=== PATIENT | female | born 1965 | race African-American/Black ===

== ENCOUNTER 2016-08-21 14:54 | Emergency (ER) | payer OTHER ==
[~2016-08-21] VITALS: Ht 175.3 cm; Wt 81.6 kg
[2016-08-21 15:00] VITALS: BP 138/86
[2016-08-21] MEDS ORDERED: Ranitidine 50mg/2ml Inj IVP ONE (15:00)
[2016-08-21] MEDS ORDERED: Morphine Sulfate 4mg/ml Inj IVP ONE ×2 (15:00→18:00)
[2016-08-21] MEDS ORDERED: HYDROmorphone 1mg/ml Carpuject IVP ONE (15:00)
--- NOTE | 2016-08-21 15:45 | Emergency Room Report ---
History of Present Illness General Chief Complaint: Abdominal Pain Source: Patient Present Illness HPI Patient is a 51-year-old female who presented after increased epigastric pain. Patient reports having sharp pain which did not radiate. Patient stated that she had vomited multiple times. Patient says she had prior history of stage IV breast cancer. The patient had noted increased swelling to her left upper extremity which had been intermittently present. The patient was noted to have malignancy to her left breast. Patient was scheduled to do chemotherapy in the coming week. The patient reportedly had been seen at [facility] yesterday. The patient reported having some coffee-ground emesis. Allergies: Coded Allergies: No Known Allergies (Unverified , 08/21/16) Patient History Past Medical History: other - breast cancer Last Menstrual Period: na Reviewed Nursing Documentation: PMH: Agreed, PSxH: Agreed Nursing Documentation-PMH Past Medical History: No History, Except For Hx Cancer: Yes - left breast Review of Systems All Other Systems: negative except mentioned in HPI Physical Exam Vital Signs Date Time Temp Pulse Resp B/P Pulse Ox O2 Delivery O2 Flow Rate FiO2 08/21/16 14:46 96.8 120 18 138/86 98 Room Air Sp02 EP Interpretation: reviewed, normal General Appearance: no apparent distress, alert, GCS 15 Head: atraumatic ENT: normal ENT inspection, hearing grossly normal, normal voice Neck: normal inspection, full range of motion, supple, no bony tend Respiratory: normal inspection, lungs clear, normal breath sounds, no respiratory distress, no retraction, no wheezing Cardiovascular #1: regular rate, rhythm, no edema Gastrointestinal: normal inspection, normal bowel sounds, non tender, soft, no guarding, no hernia Genitourinary: no CVA tenderness Musculoskeletal: normal inspection, back normal, normal range of motion, swelling - upper extremity edema left arm Neurologic: normal inspection, alert, oriented x3, responsive, hairspring assembler III-XII nml as tested, speech normal Psychiatric: normal inspection, judgement/insight normal, mood/affect normal Skin: normal inspection, normal color, no rash Medical Decision Making Diagnostic Impression: Primary Impression: Breast cancer Additional Impressions: Gastritis UTI (urinary tract infection) ER Course Patient presented for abdominal pain. Differential diagnoses included ischemic bowel, appendicitis, perforated viscus, abdominal aortic aneurysm, inferior myocardial infarction, viral gastroenteritis Because of complexity of patient's case laboratory testing and imaging studies were ordered. The patient was given IV ranitidine as well as IV pain medications. The patient was reportedly seen at [place] yesterday and reportedly had CT imaging of her abdomen performed. CT report from [place] was reviewed. Laboratory testing was unremarkable. Patient was scheduled to begin chemotherapy later in the week. Patient was given IV fluids. She was noted to have left upper extremity lymphedema. This was likely due to spread of tumor into left lung and left breast. Patient was given prescription for pain medications and acid blockers. She was advised to follow up with her oncology team in the next 1-2 days for recheck. Labs Test 08/21/16 15:42 08/21/16 15:48 White Blood Count 10.9 K/UL (4.8-10.8) Red Blood Count 4.33 M/UL (4.20-5.40) Hemoglobin 11.8 G/DL (12.0-16.0) Hematocrit 37.2 % (37.0-47.0) Mean Corpuscular Volume 86 FL (80-99) Mean Corpuscular Hemoglobin 27.2 PG (27.0-31.0) Mean Corpuscular Hemoglobin Concent 31.6 G/DL (32.0-36.0) Red Cell Distribution Width 17.1 % (11.6-14.8) Platelet Count 227 K/UL (150-450) Mean Platelet Volume 6.3 FL (6.5-10.1) Neutrophils (%) (Auto) % (45.0-75.0) Lymphocytes (%) (Auto) % (20.0-45.0) Monocytes (%) (Auto) % (1.0-10.0) Eosinophils (%) (Auto) % (0.0-3.0) Basophils (%) (Auto) % (0.0-2.0) Differential Total Cells Counted 100 Neutrophils % (Manual) 82 % (45-75) Lymphocytes % (Manual) 9 % (20-45) Monocytes % (Manual) 5 % (1-10) Eosinophils % (Manual) 0 % (0-3) Basophils % (Manual) 0 % (0-2) Band Neutrophils 4 % (0-8) Platelet Estimate Adequate Platelet Morphology Normal Hypochromasia 1+ Anisocytosis 1+ Prothrombin Time 9.6 SEC (9.30-11.50) Prothromb Time International Ratio 0.9 (0.9-1.1) Activated Partial Thromboplast Time 25 SEC (23-33) Sodium Level 139 mEQ/L (135-145) Potassium Level 3.4 mEQ/L (3.4-4.9) Chloride Level 98 mEQ/L (98-107) Carbon Dioxide Level 25 mEQ/L (20-30) Anion Gap 16 (5-15) Blood Urea Nitrogen 15 mg/dL (7-23) Creatinine 0.8 mg/dL (0.5-0.9) Estimat Glomerular Filtration Rate > 60 mL/min (>60) Glucose Level 90 mg/dL (74-106) Calcium Level 9.1 mg/dL (8.6-10.2) Total Bilirubin 0.3 mg/dL (0.0-1.2) Aspartate Amino Transf (AST/SGOT) 15 U/L (5-40) Alanine Aminotransferase (ALT/SGPT) 12 U/L (3-33) Alkaline Phosphatase 75 U/L (35-104) Troponin I < 0.30 ng/mL (<=0.30) Total Protein 8.1 g/dL (6.6-8.7) Albumin 3.8 g/dL (3.5-5.2) Globulin 4.3 g/dL Albumin/Globulin Ratio 0.8 (1.0-2.7) Lipase 20 U/L (< 60) Urine Color Pale yellow Urine Appearance Clear Urine pH 5 (4.5-8.0) Urine Specific [place] 1.020 (1.005-1.035) Urine Protein 2+ (NEGATIVE) Urine Glucose (UA) Negative (NEGATIVE) Urine Ketones Negative (NEGATIVE) Urine Occult Blood 5+ (NEGATIVE) Urine Nitrite Negative (NEGATIVE) Urine Bilirubin Negative (NEGATIVE) Urine Urobilinogen Normal MG/DL (0.0-1.0) Urine Leukocyte Esterase 2+ (NEGATIVE) Urine RBC 10-15 /HPF (0 - 2) Urine WBC 5-10 /HPF (0 - 2) Urine Squamous Epithelial Cells Few /LPF (NONE/OCC) Urine Bacteria Moderate /HPF (NONE) Urine Opiates Screen Positive (NEGATIVE) Urine Barbiturates Screen Negative (NEGATIVE) Phencyclidine (PCP) Screen Negative (NEGATIVE) Urine Amphetamines Screen Negative (NEGATIVE) Urine Benzodiazepines Screen Negative (NEGATIVE) Urine Cocaine Screen Negative (NEGATIVE) Urine Marijuana (THC) Screen Negative (NEGATIVE) Last Vital Signs Date Time Temp Pulse Resp B/P Pulse Ox O2 Delivery O2 Flow Rate FiO2 08/21/16 14:46 96.8 120 18 138/86 98 Room Air Status: improved Disposition: HOME, SELF-CARE Condition: Stable Scripts Ondansetron* (ZOFRAN*) 4 Mg Tablet 4 MG ORAL Q6H Y for Nausea & Vomiting, #20 TAB Prov: Angel Guallpa 08/21/16 Trimethoprim/Sulfamethoxazole 160/800* (BACTRIM DS TABLET*) 1 Each Tablet 1 TAB ORAL Q12H, #14 TAB 0 Refills Prov: Angel Guallpa 08/21/16 Oxycodone/Acetaminophen 5-325* (PERCOCET 5-325 MG TABLET*) 1 Each Tablet 1 TAB ORAL Q4H Y for For Pain, #15 TAB 0 Refills Prov: Angel Guallpa 08/21/16 Omeprazole (OMEPRAZOLE) 20 Mg Capsule.dr 20 MG ORAL DAILY, #30 CAP Prov: Angel Guallpa 08/21/16 Angel Guallpa Aug 21, 2016 15:45
[2016-08-21 16:27] LABS: MEAN CORPUSCULAR HEMOGLOBIN 27.2 PG (27.0-31.0); MEAN CORPUSCULAR HGB CONC 31.6 G/DL (32.0-36.0); MEAN CORPUSCULAR VOLUME 86 FL (80-99); MEAN PLATELET VOLUME 6.3 FL (6.5-10.1); PLATELET COUNT 227 K/UL (150-450); RED BLOOD COUNT 4.33 M/UL (4.20-5.40); RED CELL DISTRIBUTION WIDTH 17.1 % (11.6-14.8); WHITE BLOOD COUNT 10.9 K/UL (4.8-10.8)
[2016-08-21 16:30] LABS: ALANINE AMINOTRANSFERASE 12 U/L (3-33); ALBUMIN/GLOBULIN RATIO 0.8 (1.0-2.7); ANION GAP 16 (5-15); ASPARTATE AMINO TRANSFERASE 15 U/L (5-40); CALCIUM 9.1 mg/dL (8.6-10.2); CARBON DIOXIDE 25 mEQ/L (20-30); CHLORIDE 98 mEQ/L (98-107); CREATININE 0.8 mg/dL (0.5-0.9); GLOMERULAR FILTRATION RATE > 60 mL/min (>60); HEMOLYSIS 5; LIPASE 20 U/L (< 60); POTASSIUM 3.4 mEQ/L (3.4-4.9); SODIUM 139 mEQ/L (135-145); TOTAL PROTEIN 8.1 g/dL (6.6-8.7); TROPONIN I < 0.30 ng/mL (<=0.30)
[2016-08-21 16:31] LABS: APPEARANCE,URINE CLEAR; KETONES,URINE NEGATIVE (NEGATIVE); LEUKOCYTE ESTERASE ,URINE 2+ (NEGATIVE); NITRITE,URINE NEGATIVE (NEGATIVE); PH,URINE 5 (4.5-8.0); PROTEIN,URINE 2+ (NEGATIVE); UROBILINOGEN,URINE NORMAL MG/DL (0.0-1.0)
[2016-08-21 16:41] LABS: INR 0.9 (0.9-1.1); PROTHROMBIN TIME 9.6 SEC (9.30-11.50)
[2016-08-21 16:42] LABS: BACTERIA,URINE MODERATE /HPF; SQUAMOUS EPITHELIAL CELL,UR FEW /LPF (NONE/OCC)
[2016-08-21] MEDS ORDERED: cefTRIAXone 1 GM in NS 55 ML IVPB ONE ×2 (16:45→17:45)
[2016-08-21 17:00] VITALS: BP 128/75
[2016-08-21 17:22] LABS: ANISOCYTOSIS 1+; BAND NEUTROPHILS % (MANUAL) 4 % (0-8); BASOPHILS % (MANUAL) 0 % (0-2); EOSINOPHILS % (MANUAL) 0 % (0-3); HYPOCHROMASIA 1+; LYMPHOCYTES % (MANUAL) 9 % (20-45); NEUTROPHILS % (MANUAL) 82 % (45-75); PLATELET ESTIMATE ADEQUATE; PLATELET MORPHOLOGY NORMAL; TOTAL CELLS COUNTED 100
[2016-08-21] MEDS ORDERED: PERCOCET 5-3251 EACH ORAL (18:12)
[2016-08-21] MEDS ORDERED: BACTRIM DS TAB1 EAC1 ORAL (18:12)
[2016-08-21] MEDS ORDERED: OMEPRAZOLE20 M2 ORAL (18:12)
[2016-08-21] MEDS ORDERED: ZOFRAN4 M3 ORAL (18:29)
[2016-08-21 19:38] VITALS: BP 132/90
--- NOTE | 2016-08-24 07:48 | Cardiology Report ---
APPROVED REPORT EKG Measurement Heart [id number] HI [id number] Sinus tachycardia Possible Left atrial enlargement Left ventricular hypertrophy Cannot rule out Septal infarct, age undetermined T wave abnormality, consider inferior ischemia T wave abnormality, consider anterolateral ischemia Abnormal ECG
== END 2016-08-21 19:44 | disposition home or self-care (01) ==
LOC: EDBD 14:54 → EMR 15:00 → CANBEDREQ 18:11 → EMR 19:44
DX: C50.912 Malignant neoplasm of unspecified site of left female breast (principal); K29.70 Gastritis, unspecified, without bleeding; N39.0 Urinary tract infection, site not specified
CPT/HCPCS: 36415; 80053; 80300; 81003; 83690; 84484; 85007; 85025; 85610; 85730; 86850; 86900; 86901; 87086; 93005; 96374; 96375; 99284; J0696; J1170; J2270; J2405; J2780